=== PATIENT | female | born 1985 | race American Indian/Alaskan Native ===

== ENCOUNTER 2018-11-21 07:33 | Emergency (ER) | payer OTHER ==
[2018-11-21] MEDS ORDERED: IBUPROFEN PO ONE (07:52)
[2018-11-21] MEDS ORDERED: NORCO 5/325 PO ONE (07:52)
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
[2018-11-21 11:28] VITALS: BP 164/55
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
== END 2018-11-21 11:27 | disposition home or self-care (01) ==
LOC: ED 07:33
DX: S16.1XXA Strain of muscle, fascia and tendon at neck level, initial encounter (principal); S39.012A Strain of muscle, fascia and tendon of lower back, initial encounter; D57.3 Sickle-cell trait; J45.909 Unspecified asthma, uncomplicated; Z88.1 Allergy status to other antibiotic agents; Z88.2 Allergy status to sulfonamides; V47.5XXA Car driver injured in collision with fixed or stationary object in traffic accident, initial encounter; Y93.89 Activity, other specified; Y92.410 Unspecified street and highway as the place of occurrence of the external cause; Y99.8 Other external cause status
CPT/HCPCS: 36415; 72040; 72100; 72170; 84703